=== PATIENT | male | born 1995 | race Native Hawaiian/Other Pacific Islander ===

== ENCOUNTER 2017-04-19 21:51 | Emergency (ER) | payer OTHER ==
[2017-04-19 22:45] VITALS: BP 117/63
[2017-04-19] MEDS ORDERED: predniSONE TAB* 20 MG PO ONE (23:10)
--- NOTE | 2017-04-19 23:55 | ED ---
Skin Complaint - HPI Summary HPI Summary: Pt here w/ blistering, itchy rash in areas of contact with plants after gardening 5 days ago. This rash appeared a day after and really noticeable few days later. He has applied hydrocortisone cream w/ some relief. Notes h/o eczema. Otherwise, no medical hx. Denies wheezing, trouble breathing/swallowing and no facial swelling. - History of Current Complaint Chief Complaint: EDRashSkinAbscess Time Seen by Provider: 04/19/17 22:19 Stated Complaint: RASH Hx Obtained From: Patient Pain Intensity: 0 Pain Scale Used: 0-10 Numeric - Allergy/Home Medications Allergies/Adverse Reactions: Allergies Allergy/AdvReac Type Severity Reaction Status Date / Time No Known Allergies Allergy Verified 09/21/16 14:47 PMH/Surg Hx/FS Hx/Imm Hx Previously Healthy: Yes Endocrine/Hematology History: Reports: Autoimmune Disease - eczema Denies: Hx Blood Disorders Cardiovascular History: Denies: Hx Congenital Heart Disease Respiratory History: Denies: Hx Asthma Musculoskeletal History: Denies: Other Musculoskeletal History Infectious Disease History: No Infectious Disease History: Denies: Traveled Outside the [place] in Last 30 Days - Family History Known Family History: Positive: None - Social History Occupation: Employed Full-time Alcohol Use: Daily Hx Substance Use: No Substance Use Type: Reports: None Hx Tobacco Use: No Smoking Status (MU): Never Smoked Tobacco Review of Systems Constitutional: Negative Negative: Fever, Chills, Fatigue Respiratory: Negative Negative: Shortness Of Breath, Cough Negative: Abdominal Pain, Vomiting, Nausea Positive: no symptoms reported Negative: Arthralgia, Myalgia, Decreased ROM, Edema Skin: Other - see HPI Neurological: Negative Negative: Headache Psychological: Normal All Other Systems Reviewed And Are Negative: Yes Physical Exam Triage Information Reviewed: Yes Vital Signs On Initial Exam: Initial Vitals Temp Pulse Resp BP Pulse Ox 97.8 F 82 16 115/75 97 04/19/17 21:53 04/19/17 21:53 04/19/17 21:53 04/19/17 21:53 04/19/17 21:53 Vital Signs Reviewed: Yes Appearance: Positive: Well-Appearing, No Pain Distress, Well-Nourished Skin: Positive: Warm, Dry - linear erythematous rash w/ stringing of vesicles - some areas with crusting; these are over forearms and ankles as well as waist line and dorsum of foot Head/Face: Positive: Normal Head/Face Inspection Eyes: Positive: Normal, EOMI ENT: Positive: Hearing grossly normal Respiratory/Lung Sounds: Positive: Clear to Auscultation, Breath Sounds Present. Negative: Stridor, Wheezes Cardiovascular: Positive: Normal, RRR Musculoskeletal: Positive: Normal, Strength/ROM Intact Neurological: Positive: Normal, Sensory/Motor Intact, Alert, Oriented to Person Place, Time, CN Intact II-III Psychiatric: Positive: Normal Diagnostics - Vital Signs Vital Signs Temp Pulse Resp BP Pulse Ox 04/19/17 23:48 98 F 78 16 117/63 04/19/17 22:41 98.0 F 78 15 117/63 99 04/19/17 21:53 97.8 F 82 16 115/75 97 - Laboratory Lab Statement: Any lab studies that have been ordered have been reviewed, and results considered in the medical decision making process. Course/Dx - Course Course Of Treatment: Pt appears to have poison natalya allergic reaction. Discussed course of care. Pt will f/u w/ dermatology in the event this worsens or changes - he is at higher risk for complications w/ h/o eczema. Agrees to return to ED if danger s/sx present. - Diagnoses Provider Diagnoses: Poison natalya dermatitis Discharge - Discharge Plan Condition: Stable Disposition: HOME Prescriptions: Methylprednisolone [Medrol Dosepak 4 MG*] 4 mg PO .SEE TOM INSTRUCTION #1 tom Patient Education Materials: Poison Natalya (ED) Referrals: Non Staff,Doctor [Primary Care Provider] - Additional Instructions: You appear to have a poison natalya allergy. It is encouraged that you take an anti- histamine before bed (ie. benadryl 50mg) and use topical hydrocortisone as needed for itching. Complete steroids and follow-up with dermatology this week to monitor course of pathology in the event it worsens. You may also try Zanfel topical wash to help dry the oils that are spreading and causing you issues. *If you develop fever, chills, wheezing, shortness of breath or trouble swallowing, return to ED
== END 2017-04-19 23:48 | disposition home or self-care (01) ==
LOC: ED 21:51
DX: L23.7 Allergic contact dermatitis due to plants, except food (principal)
CPT/HCPCS: 99282; J7512